=== PATIENT | female | born 1970 ===

== ENCOUNTER → 2020-05-12 | Outpatient (CLI) | payer BC ==
--- NOTE | 2020-05-13 15:15 | RAD ---
BILATERAL SCREENING MAMMOGRAM History: Routine screening. Comparison: None. This exam is a baseline. Technique: Routine bilateral digital mammogram views were obtained. Findings: Breast Tissue Density C : The breasts are heterogeneously dense, which may obscure small masses. There are no dominant masses, suspicious microcalcifications, or architectural distortion. Asymmetry is present in the central mid to posterior retroareolar right MLO view 5.1 cm from the nipple. This finding measures up to 0.76 cm diameter. Small asymmetry in the central left retroareolar origin and left outer breast also are suggested. IMPRESSION: Slight compression imaging bilaterally is recommended. Ultrasound may be needed bilaterally. BI-RADS Category 0: Incomplete: Need additional imaging evaluation. The images were reviewed with computer aided detection. Patient information is entered into the reminder system with a target due date for the next screening mammogram. Mammography is the most sensitive method for finding small breast cancers, but it does not detect them all and is not a substitute for careful clinical examination. A negative mammogram does not negate a clinically suspicious finding and should not result in delay in biopsying a clinically suspicious abnormality. "Our facility is accredited by the [employer] Mammography [employer]." Electronically signed by: Car Menjivar MD (05/13/2020 3:12 PM) [id number]
== END ==
LOC: MAMMO 15:17
PROVIDERS: ATTEND Family Medicine
DX: Z12.31 Encounter for screening mammogram for malignant neoplasm of breast (principal); N64.89 Other specified disorders of breast
CPT/HCPCS: 77067

== ENCOUNTER → 2020-05-23 | Outpatient (CLI) | payer BC ==
--- NOTE | 2020-05-23 11:59 | RAD ---
Examination: MG DIAGNOSTIC BILAT, US BREAST RT History: Reason: ABNORMAL MAMMOGRAM CALLBACK / Comparison/Correlation: 05/12/2020 Findings: Left compression imaging bilaterally was performed. No definite suspicious asymmetries are identified. Small asymmetry is questioned persists on the right MLO spot compression image of the upp er central breast. This is likely lateral in location on CC image. This likely represents summation o f breast parenchyma. Breast Tissue Density B : There are scattered areas of fibroglandular density. Ultrasound imaging of the right breast was performed 6 cm from the nipple at the 9:00 region. No mass identified. Ductal ectasia is noted in the subareolar region. Right axilla is unremarkable. IMPRESSION: No mammographic evidence of malignancy. Recommend routine screening. BI-RADS category 1: Negative. The images were reviewed with computer-aided detection. Patient information is entered into reminder system with a target due date for the next screening noa mogram. Mammography is the most sensitive method for finding small breast cancers, but it does not detect the m all and is not a substitute for careful clinical examination. A negative mammogram does not negate a clinically suspicious finding and should not result in delay in biopsying a clinically suspicious a bnormality. "Our facility is accredited by the [employer] Mammography [employer]." Electronically signed by: Car Menjivar MD (05/23/2020 11:57 AM) [place] [id number]
== END ==
LOC: MAMMO 08:56
PROVIDERS: ATTEND Family Medicine
DX: N60.41 Mammary duct ectasia of right breast (principal)
CPT/HCPCS: 76641; 77066